=== PATIENT | male | born 1950 | race Caucasian/White ===

== ENCOUNTER 2022-01-17 23:03 | Emergency (ER) | payer MEDICARE, BC, SELFPAY ==
[2022-01-17 23:29] VITALS: BP 188/94; PULSE 88; RESP 17; TEMP 36.9; O2SAT 98; BMI 25.7
--- NOTE | 2022-01-17 23:53 | ED.GENADULT ---
HPI - General Adult General Chief complaint: Abdominal Pain Stated complaint: Acute ABD pain Time Seen by Provider: 01/17/22 23:34 Source: patient Mode of arrival: Ambulatory Limitations: no limitations History of Present Illness HPI narrative: Patient is a 71-year-old male who is here for evaluation of upper abdominal pain. He had symptoms similar to this a couple days ago was seen in outside emergency department. He was told that he had issues with his gallbladder however after receiving treatment at the facility he stated that his symptoms improved and he was discharged home. He also states that he had very similar symptoms several months ago. Was again seen in an outside facility the and he does not remember the exact circumstances as to whether not he received ultrasound or CT scan. Again he was discharged and instructed to follow-up with his primary provider. This evening he started have upper abdominal pain after eating. No vomiting. No urinary symptoms. No prior abdominal surgeries. No change in bowel habits. No skin rashes. No chest pain. No shortness of breath. Related Data Previous Rx's Medication Instructions Recorded albuterol sulfate 90 mcg/actuation 2 puff INH Q4HP PRN #1 inh 06/05/16 aerosol inhaler (Ventolin HFA) mometasone-formoterol HFA 100 1 inh INH BID #1 ea 06/05/16 mcg-5 mcg/actuation aerosol inhaler (Dulera) Spacer: Inhaler Spacer Device ea ##1 09/08/16 levothyroxine 125 mcg tablet 125 mcg PO QDAY #90 tabs 12/25/16 (Synthroid) mupirocin 2 % topical ointment 1 applic topical BID #30 grams 03/17/20 Allergies Allergy/AdvReac Type Severity Reaction Status Date / Time No Known Allergies Allergy Uncoded 11/11/17 12:39 Review of Systems Review of Systems ROS Unobtainable: All systems reviewed & are unremarkable except as noted in HPI and below Patient History Medical History Acquired hypothyroidism (06/24/16) Gastroesophageal reflux disease without esophagitis (06/24/16) Uncomplicated asthma (06/24/16) Social History Smoking Status: Never smoker Smoking Status: Never smoker alcohol intake frequency: 0-2 drinks per day Substance Use Type: does not use Exam Initial Vital Signs Initial Vital Signs: Vital Signs Temperature 98.4 F 01/17/22 23:29 Pulse Rate 88 01/17/22 23:29 Respiratory Rate 17 01/17/22 23:29 Blood Pressure 188/94 H 01/17/22 23:29 Pulse Oximetry 98 01/17/22 23:29 Oxygen Delivery Method 01/17/22 23:29 Const General: cooperative and comfortable HENMT Head: normal to inspection and normocephalic Resp Effort & Inspection: normal respiratory effort Auscultation: clear to auscultation bilaterally Cardio Rate: regular rate Rhythm: regular rhythm GI Inspection: distended Palpation: soft and tender Back/Spine/Pelvis Back: No CVA tenderness Skin General: no rashes or lesions noted Neuro General: patient alert, patient awake, patient oriented x3 and moves all extremities Cognition: normal cognition Speech: speech normal Extrem General: normal to inspection and capillary refill normal Psych Appearance: grossly normal and well kempt Course Orders Ordered: ED Orders 01/17/22 23:54 Complete Blood Count AUTO DIFF Stat Comprehensive Metabolic Panel Stat Lactate (Lactic Acid) Stat Lipase Stat 01/18/22 00:12 CT abdomen pelvis w con Stat 01/18/22 01:22 US abdomen limited Stat 01/18/22 07:05 Consult to General Surgery Stat Discontinued Medications Sodium Chloride (Normal Saline 0.9%) 1,000 mls @ 1,000 mls/hr IV BOLUS ONE Stop: 01/18/22 00:52 Last Infusion: 01/18/22 01:18 Dose: 0 mls/hr Documented By: Admin: 01/18/22 00:10 Dose: 1,000 mls/hr Documented By: SELENA Piperacillin Sod/Tazobactam (Sod 4.5 gm/ Sodium Chloride) 100 mls @ 200 mls/hr IV NOW ONE Stop: 01/18/22 04:02 Last Infusion: 01/18/22 05:02 Dose: 0 mls/hr Documented By: Admin: 01/18/22 04:19 Dose: 200 mls/hr Documented By: SELENA Morphine Sulfate (Morphine 4 Mg/Ml Inj) 4 mg IV NOW ONE Stop: 01/17/22 23:54 Last Admin: 01/18/22 00:10 Dose: 4 mg Documented By: SELENA Vital Signs Vital signs: Vital Signs - 8 hr 01/17/22 23:29 01/18/22 00:12 01/18/22 00:12 Temperature 98.4 F Pulse Rate 88 76 Respiratory Rate 17 Blood Pressure 188/94 H 178/88 H Pulse Oximetry 98 96 Oxygen Delivery Method Room Air 01/18/22 00:30 01/18/22 00:30 01/18/22 01:00 Temperature Pulse Rate 80 Respiratory Rate Blood Pressure 160/76 H 134/64 Pulse Oximetry 94 Oxygen Delivery Method Room Air 01/18/22 01:00 01/18/22 01:37 01/18/22 01:38 Temperature Pulse Rate 80 85 Respiratory Rate Blood Pressure Pulse Oximetry 95 97 98 Oxygen Delivery Method 01/18/22 01:38 01/18/22 02:00 01/18/22 02:00 Temperature Pulse Rate 79 Respiratory Rate Blood Pressure 159/72 H 168/79 H Pulse Oximetry 96 Oxygen Delivery Method 01/18/22 02:30 01/18/22 02:30 01/18/22 03:00 Temperature Pulse Rate 73 Respiratory Rate Blood Pressure 134/72 127/74 Pulse Oximetry 94 Oxygen Delivery Method Room Air 01/18/22 03:00 01/18/22 03:30 01/18/22 03:30 Temperature Pulse Rate 75 76 Respiratory Rate Blood Pressure 130/71 Pulse Oximetry 93 93 Oxygen Delivery Method Room Air 01/18/22 04:00 01/18/22 04:00 01/18/22 04:30 Temperature Pulse Rate 70 74 Respiratory Rate Blood Pressure 130/71 Pulse Oximetry 94 95 Oxygen Delivery Method 01/18/22 05:00 01/18/22 05:30 01/18/22 06:00 Temperature Pulse Rate 69 63 70 Respiratory Rate Blood Pressure Pulse Oximetry 94 93 93 Oxygen Delivery Method 01/18/22 06:30 01/18/22 07:00 Temperature Pulse Rate 72 61 Respiratory Rate Blood Pressure Pulse Oximetry 96 92 Oxygen Delivery Method Medical Decision Making Lab Data Lab results reviewed: Yes I reviewed the patient's lab results. Result diagrams: 01/18/22 00:05 01/18/22 00:05 Labs: Lab Results 01/18/22 01/18/22 01/18/22 Range/Units 00:05 00:05 00:05 WBC 15.1 H (4.5-11.0) X10^3/uL RBC 4.73 (4.5-5.9) X10^6/uL Hgb 14.6 (13.5-17.5) g/dL Hct 43.9 (41-53) % MCV 92.8 (80-100) fL MCH 30.9 (26-34) PG MCHC 33.3 (30-36) % RDW 13.4 (11.6-14.8) % Plt Count 129 L (150-400) X10^3/uL Neut % (Auto) 84.4 H (50-75) % Lymph % (Auto) 8.4 L (25-40) % [place] % (Auto) 5.2 (3-14) % Eos % (Auto) 1.5 L (2-4) % Baso % (Auto) 0.5 (0-2) % Neut # (Auto) 95999 H (5568-3794) /uL Lymph # (Auto) 1300 (2829-3897) /uL [place] # (Auto) 800 (0-900) /uL Eos # (Auto) 200 (0-450) /uL Baso # (Auto) 100 (0-100) /uL Sodium 137 (137-145) mmol/L Potassium 3.9 (3.4-5.1) mmol/L Chloride 105 (98-107) mmol/L Carbon Dioxide 27 (22-32) mmol/L BUN 22 H (9-20) mg/dL Creatinine 0.97 (0.66-1.25) mg/dL Estimated GFR > 60 (>60) mL/min BUN/Creatinine Ratio 22.7 H (6-22) Glucose 107 (80-110) mg/dL Lactate 0.8 (0.7-2.1) mmol/L Calcium 8.3 L (8.4-10.2) mg/dL Total Bilirubin 0.8 (0.2-1.3) mg/dL AST 26 (17-59) IU/L ALT 19 (<50) IU/L Alkaline Phosphatase 74 (38-126) U/L Total Protein 6.5 (6.3-8.2) g/dL Albumin 3.8 (3.5-5.0) g/dL Globulin 2.7 (1.7-4.1) g/dL Albumin/Globulin Ratio 1.4 (1.0-2.8) Lipase 29 (23-300) U/L Urine Dip Bedside Urine Glucose Negative Bedside Urine Bilirubin - Negative Bedside Urine Ketone +/- 5 Urine Specific [place] 1.015 Bedside Urine Occult Blood - Negative Bedside Urine pH 6.0 Bedside Urine Protein - Negative Bedside Urine Urobilinogen - Negative Bedside Urine Nitrite - Negative Bedside Urine Leukocytes - Negative Esterase Point of care testing: Urine Dip Bedside Urine Glucose Negative Bedside Urine Bilirubin - Negative Bedside Urine Ketone +/- 5 Urine Specific [place] 1.015 Bedside Urine Occult Blood - Negative Bedside Urine pH 6.0 Bedside Urine Protein - Negative Bedside Urine Urobilinogen - Negative Bedside Urine Nitrite - Negative Bedside Urine Leukocytes - Negative Esterase Imaging Data CT scan - abdomen/pelvis: Radiologist's Impression: [address] [address] [address] Scan Report Signed Patient: hCuck Sierra MR#: [id number] : 1950 Acct:[id number] Age/Sex: 71 / M Date of Service: 01/18/22 Loc: ED Accession Number: [id number] ?? Procedure: CT abdomen pelvis w con Ordering Provider: Ramy Mercer D.O. PROCEDURE:? CT ABDOMEN PELVIS W CON ? INDICATIONS:? Generalized abdominal pain ? TECHNIQUE:? After the administration of IV contrast, axial sections were acquired from the lung bases to the pubic symphysis.? Coronal and sagittal reformats were performed.? For radiation dose reduction, the following was used:? automated exposure control, adjustment of mA and/or kV according to patient size. ? COMPARISON:? None. ? FINDINGS:? Image quality:? Excellent.? ? Lung bases:? There is mild atelectasis and scarring in the lung bases.? ? Heart:? Heart is normal in size.? There is a large hiatal hernia. ? ? ABDOMEN: Liver:? No mass lesion. Gallbladder:? Multiple calcified gallstones are demonstrated in the gallbladder with wall thickening and pericholecystic fat stranding suggestive of acute cholecystitis.? ? Biliary ducts:? No biliary ductal dilatation.? ? Pancreas:? Unremarkable.? ? Spleen:? Normal in size.? ? Adrenal Glands:? No adrenal nodules.? ? Kidneys and Ureters:? No hydronephrosis.? ? ? Stomach and Bowel:? Stomach and small bowel loops are normal in caliber and wall thickness.? No evidence of appendicitis.? There is mild segmental wall thickening of the colon at the hepatic flexure likely representing reactive changes secondary to adjacent gallbladder inflammation.? Peritoneum:? There is minimal free fluid in the right abdomen which is nonspecific but likely reactive.? No free air.? ? Ventral Wall: ? No hernia.? Abdominal Nodes:? No retroperitoneal or mesenteric adenopathy by size criteria.? Vessels:? Aorta and inferior vena cava are normal in size.? ? PELVIS: Pelvic Organs:? Unremarkable.? ? Bladder:? Unremarkable.? ? Pelvic Nodes: No enlarged lymph nodes.? Miscellaneous:? There is a small fat-containing right inguinal hernia also containing a small amount of free fluid. ? Bones:? Visualized osseous structures demonstrate no suspicious focal lesions. ? IMPRESSION:? ? 1. Cholelithiasis with gallbladder wall thickening and pericholecystic fat stranding likely represents acute cholecystitis.? ? 2. Mild dilatation of the cystic duct without a discrete calcified obstructing stone visualized.? No biliary ductal dilatation or calcified common duct stone. ? Findings discussed with Dr. Mercer on 01/18/2022 at 1:56 p.m.. ? 3. Large hiatal hernia.? ? ? Dictated by: Pablo Frausto M.D. on 01/18/2022 at 1:53 ? ? Approved by: Pablo Frausto M.D. on 01/18/2022 at 2:01? US - abdomen: Radiologist's Impression: Cholelithiasis with pericholecystic fluid and wall thickening, findings suggestive of cholecystitis Wall thickening of 4 mm Multiple stones present within the gallbladder lumen Common bile duct 5 mm Negative sonographic Dill sign Discharge Plan Departure Patient Disposition: Admitted As Inpatient Clinical Impression: Acute cholecystitis
[2022-01-18] VITALS (22 sets, daily range): BP systolic 127–178; BP diastolic 64–88; PULSE 60–85; RESP 16; O2SAT 92–98
[2022-01-18] MEDS: SODIUM CHLORIDE 0.9% 1,000 ML 1000 ML IV (00:10)
[2022-01-18] MEDS: MORPHINE 4 MG/ML INJ IV (00:10)
--- NOTE | 2022-01-18 00:12 | DI.CT.S_ITS ---
PROCEDURE: CT ABDOMEN PELVIS W CON INDICATIONS: Generalized abdominal pain TECHNIQUE: After the administration of IV contrast, axial sections were acquired from the lung bases to the pubic symphysis. Coronal and sagittal reformats were performed. For radiation dose reduction, the following was used: automated exposure control, adjustment of mA and/or kV according to patient size. COMPARISON: None. FINDINGS: Image quality: Excellent. Lung bases: There is mild atelectasis and scarring in the lung bases. Heart: Heart is normal in size. There is a large hiatal hernia. ABDOMEN: Liver: No mass lesion. Gallbladder: Multiple calcified gallstones are demonstrated in the gallbladder with wall thickening and pericholecystic fat stranding suggestive of acute cholecystitis. Biliary ducts: No biliary ductal dilatation. Pancreas: Unremarkable. Spleen: Normal in size. Adrenal Glands: No adrenal nodules. Kidneys and Ureters: No hydronephrosis. Stomach and Bowel: Stomach and small bowel loops are normal in caliber and wall thickness. No evidence of appendicitis. There is mild segmental wall thickening of the colon at the hepatic flexure likely representing reactive changes secondary to adjacent gallbladder inflammation. Peritoneum: There is minimal free fluid in the right abdomen which is nonspecific but likely reactive. No free air. Ventral Wall: No hernia. Abdominal Nodes: No retroperitoneal or mesenteric adenopathy by size criteria. Vessels: Aorta and inferior vena cava are normal in size. PELVIS: Pelvic Organs: Unremarkable. Bladder: Unremarkable. Pelvic Nodes: No enlarged lymph nodes. Miscellaneous: There is a small fat-containing right inguinal hernia also containing a small amount of free fluid. Bones: Visualized osseous structures demonstrate no suspicious focal lesions. IMPRESSION: 1. Cholelithiasis with gallbladder wall thickening and pericholecystic fat stranding likely represents acute cholecystitis. 2. Mild dilatation of the cystic duct without a discrete calcified obstructing stone visualized. No biliary ductal dilatation or calcified common duct stone. Findings discussed with Dr. Mercer on 01/18/2022 at 1:56 p.m.. 3. Large hiatal hernia. Dictated by: Pablo Frausto M.D. on 01/18/2022 at 1:53 Approved by: Pablo Frausto M.D. on 01/18/2022 at 2:01
[2022-01-18 00:18] LABS: Add Manual Diff / Slide Review NO; Basophils Absolute Auto 100 /uL (0-100); Basophils Percent Auto 0.5 % (0-2); Eosinophils Absolute Auto 200 /uL (0-450); Eosinophils Percent Auto 1.5 % (2-4); Hematocrit 43.9 % (41-53); Hemoglobin 14.6 g/dL (13.5-17.5); Lymphocytes Absolute Auto 1300 /uL (1100-4500); Lymphocytes Percent Auto 8.4 % (25-40); Mean Corpuscular HGB Conc 33.3 % (30-36); Mean Corpuscular Hemoglobin 30.9 PG (26-34); Mean Corpuscular Volume 92.8 fL (80-100); Monocytes Absolute Auto 800 /uL (0-900); Monocytes Percent Auto 5.2 % (3-14); Neutrophils Absolute Auto 12700 /uL (1500-7000); Neutrophils Percent Auto 84.4 % (50-75); Platelet Count 129 X10^3/uL (150-400); Red Blood Cell Count 4.73 X10^6/uL (4.5-5.9); Red Cell Distribution Width 13.4 % (11.6-14.8); White Blood Cell Count 15.1 X10^3/uL (4.5-11.0)
[2022-01-18 00:29] LABS: Lactate (Lactic Acid) 0.8 mmol/L (0.7-2.1)
[2022-01-18 00:30] LABS: Alanine Aminotransferase 19 IU/L (<50); Albumin 3.8 g/dL (3.5-5.0); Albumin Globulin Ratio 1.4 (1.0-2.8); Alkaline Phosphatase 74 U/L (38-126); Aspartate Aminotransferase 26 IU/L (17-59); BUN Creatinine Ratio 22.7 (6-22); Bilirubin Total 0.8 mg/dL (0.2-1.3); Blood Urea Nitrogen 22 mg/dL (9-20); Calcium 8.3 mg/dL (8.4-10.2); Carbon Dioxide 27 mmol/L (22-32); Chloride 105 mmol/L (98-107); Estimated Glomerular Filt Rate > 60 mL/min (>60); Globulin 2.7 g/dL (1.7-4.1); Glucose 107 mg/dL (80-110); HEMOLYSIS 31 (0-50); Lipase 29 U/L (23-300); Potassium 3.9 mmol/L (3.4-5.1); Sodium 137 mmol/L (137-145); Total Protein 6.5 g/dL (6.3-8.2)
--- NOTE | 2022-01-18 01:22 | DI.US.S_ITS ---
PROCEDURE: US ABDOMEN LIMITED INDICATIONS: RUQ US eval for GB pathology TECHNIQUE: Real-time scanning was performed of the abdominal and retroperitoneal organs, with image documentation. COMPARISON: None. FINDINGS: Liver: Homogeneous echotexture. No evidence of focal mass lesion. No intra hepatic biliary ductal dilatation Gallbladder: Numerous all shadowing calculi noted gallbladder wall thickening measuring up to 3.9 cm and pericholecystic fluid. Common Bile Duct: 5.0 mm. Pancreas: Unremarkable as visualized IMPRESSION: 1. Acute cholecystitis. Cholelithiasis, gallbladder wall thickening and pericholecystic fluid consistent with acute cholecystitis. Note: Final report is concordant with preliminary interpretation by [employer] Approved by: Kelvin Lizarraga M.D. on 01/18/2022 at 6:36
[2022-01-18] MEDS: PIPERACILLIN/TAZO 4.5 GM in SODIUM CHLORIDE 0.9% 100 ML IV (04:19)
--- NOTE | 2022-01-18 10:52 | PM.CN ---
History of Present Illness Consult details Date Patient Seen: 01/18/22 Time Patient Seen: 09:15 Chief complaint: Acute ABD pain Reason for consult: Acute rashaun Requesting provider: Ramy Mercer Narrative: Patient episode of acute cholecystitis in September that subsided and he has not been in for surgery since. Last week episode occurred again which was seen at [facility] for and released. Today he comes into [facility] with worsening symptoms right upper quadrant pain, sharp, persistent. Workup in the ED confirms acute cholecystitis with mild pericholecystic fluid, 3.9 with wall thickening, LFTs [place] [id number] scan, labs, ultrasound. Patient feels better with IV fluids and pain medication. He has been given a dose of antibiotics as well. His question is whether he could go home and deal with some important issues and delay the surgery until later. Meds Home Medications and Allergies Home Medications Medication Instructions Recorded Confirmed Type albuterol sulfate 90 mcg/actuation 2 puff INH Q4HP PRN #1 inh 06/05/16 03/17/20 Rx aerosol inhaler (Ventolin HFA) mometasone-formoterol HFA 100 1 inh INH BID #1 ea 06/05/16 03/17/20 Rx mcg-5 mcg/actuation aerosol inhaler (Dulera) Spacer: Inhaler Spacer Device ea ##1 09/08/16 03/17/20 Rx levothyroxine 125 mcg tablet 125 mcg PO QDAY #90 tabs 12/25/16 03/17/20 Rx (Synthroid) mupirocin 2 % topical ointment 1 applic topical BID #30 grams 03/17/20 03/17/20 Rx amoxicillin 875 mg-potassium 1 tab PO Q12H #20 tabs 01/18/22 Rx clavulanate 125 mg tablet hydrocodone 5 mg-acetaminophen 325 1 tab PO QID PRN pain #10 tabs 01/18/22 Rx mg tablet Allergies Allergy/AdvReac Type Severity Reaction Status Date / Time No Known Allergies Allergy Uncoded 11/11/17 12:39 Review of Systems Review of Systems ROS: Yes All systems reviewed with the patient and are negative except as otherwise documented Exam Vital Signs (past 8 hours): - 01/18/22 03:00 01/18/22 03:00 01/18/22 03:30 Pulse Rate 75 Respiratory Rate Blood Pressure 127/74 130/71 Pulse Oximetry 93 Oxygen Delivery Method 01/18/22 03:30 01/18/22 04:00 01/18/22 04:00 Pulse Rate 76 70 Respiratory Rate Blood Pressure 130/71 Pulse Oximetry 93 94 Oxygen Delivery Method Room Air 01/18/22 04:30 01/18/22 05:00 01/18/22 05:30 Pulse Rate 74 69 63 Respiratory Rate Blood Pressure Pulse Oximetry 95 94 93 Oxygen Delivery Method 01/18/22 06:00 01/18/22 06:30 01/18/22 07:00 Pulse Rate 70 72 61 Respiratory Rate Blood Pressure Pulse Oximetry 93 96 92 Oxygen Delivery Method 01/18/22 07:30 01/18/22 08:00 01/18/22 08:30 Pulse Rate 60 61 65 Respiratory Rate Blood Pressure Pulse Oximetry 94 95 Oxygen Delivery Method 01/18/22 09:00 01/18/22 09:30 01/18/22 10:16 Pulse Rate 73 82 81 Respiratory Rate 16 Blood Pressure 138/88 Pulse Oximetry 96 96 95 Oxygen Delivery Method Oxygen Delivery Method Room Air Const General: cooperative, healthy appearing and comfortable Nutritional Appearance: average body habitus HENAK Head: normal to inspection and atraumatic Ears: hearing grossly normal bilaterally Face and sinus: normal facial exam Eyes General: appearance normal, both eyes and all related structures Sclera: sclerae normal Neck Neck: trachea midline Chest Chest: normal inspection of the chest Resp Effort & Inspection: normal respiratory effort and able to speak in complete sentences Cardio Rate: tachycardic Rhythm: regular rhythm GI Inspection: normal to inspection Palpation: soft Other: No significant right upper quadrant tenderness to palpation at this time, consistent with resolution of acute cholecystitis Back/Spine/Pelvis Back: normal to inspection Skin General: no rashes or lesions noted and atrophy Neuro General: patient alert, patient awake and patient oriented x3 Cognition: normal cognition Speech: speech normal Extrem General: normal to inspection Psych Appearance: grossly normal Judgment: judgment good Objective Labs Result Diagrams: 01/18/22 00:05 01/18/22 00:05 Labs: Laboratory Results - last 24 hr 01/18/22 01/18/22 01/18/22 00:05 00:05 00:05 WBC 15.1 H RBC 4.73 Hgb 14.6 Hct 43.9 MCV 92.8 MCH 30.9 MCHC 33.3 RDW 13.4 Plt Count 129 L Neut % (Auto) 84.4 H Lymph % (Auto) 8.4 L [place] % (Auto) 5.2 Eos % (Auto) 1.5 L Baso % (Auto) 0.5 Neut # (Auto) 96723 H Lymph # (Auto) 1300 [place] # (Auto) 800 Eos # (Auto) 200 Baso # (Auto) 100 Sodium 137 Potassium 3.9 Chloride 105 Carbon Dioxide 27 BUN 22 H Creatinine 0.97 Estimated GFR > 60 BUN/Creatinine Ratio 22.7 H Glucose 107 Lactate 0.8 Calcium 8.3 L Total Bilirubin 0.8 AST 26 ALT 19 Alkaline Phosphatase 74 Total Protein 6.5 Albumin 3.8 Globulin 2.7 Albumin/Globulin Ratio 1.4 Lipase 29 [facility] Medical History Acquired hypothyroidism (06/24/16) Gastroesophageal reflux disease without esophagitis (06/24/16) Uncomplicated asthma (06/24/16) Tobacco & Substance Use Smoking Status: Never smoker Assessment & Plan Assessment & Plan narrative: Impression recurrent acute cholecystitis. Normal liver function tests. Elevated white count [address]. Plan: Discussed in great detail with the patient his options. He will be going home with Augmentin for a 5 day course. And pain medication for breakthrough pain. If he is on pain medication he should not be driving. If his pain recurs he should return to the hospital for an urgent/emergent lap choly. If the pain resolves and does not return then he can delay his surgery for an elective laparoscopic cholecystectomy at his leisure. COVID-19 COVID-19 status: Negative Time Spent With Patient Time with patient: 30 to 49 minutes with 50% spent counseling/coordinating care Critical Care time: I spent a total of [] minutes of critical care time on this patient's care today; this time is exclusive of procedural time.
== END 2022-01-18 10:25 | disposition home or self-care (01) ==
PROVIDERS: Emergency Medicine; Emergency Provider Emergency Medicine; PCP Family Medicine
DX: K81.0 Acute cholecystitis (principal)
CPT/HCPCS: 36415; 74177; 76705; 80053; 81003; 83605; 83690; 85025; 96361; 96365; 96375; 99283; 99284; J2270; J2543; Q9967

== ENCOUNTER → 2022-11-19 07:20 | Outpatient (CLI) | payer MEDICARE, BC, SELFPAY ==
--- NOTE | 2022-11-21 02:05 | DI.NM.S_ITS ---
DATE OF SERVICE: 11/19/2022 PROCEDURE PERFORMED: Exercise treadmill stress and rest myocardial perfusion imaging with gating to assess ejection fraction and regional wall motion. ORDERING PROVIDER: Valentino Carreon MD. INDICATIONS: The patient is a 72-year-old male with exertional dyspnea and known atherosclerotic carotid disease. EXERCISE TREADMILL TESTING: The patient was able to exercise for 9 minutes on a standard Mark protocol suggesting very good exercise capacity with an RAMONA of - 29%, achieving 10.1 METs. He had a normal heart rate and blood pressure response to exercise, achieving a maximum heart rate of 142 BPM (95% of his predicted maximum). He had no chest discomfort or other anginal symptoms. His resting ECG shows sinus rhythm with normal ST segments. There are no significant ST-segment shifts with exercise. He had rare isolated PVCs, but no complex ectopy. At 8 minutes of exercise at a heart rate of 136 bpm, 26.9 millicuries of technetium-99m Myoview was injected and he was imaged 10 minutes later using a quantitated gated SPECT acquisition protocol. The following day, he was reinjected with an additional 26 millicuries of technetium-99m Myoview, was imaged 20 minutes later, again using a gated SPECT acquisition protocol. FINDINGS: 1. Raw data: There is good myocardial tracer uptake. There is some evidence for probable diaphragmatic attenuation. His lung/heart ratio is normal at 0.23 with a normal TID ratio of 0.96. 2. Quantitated gated SPECT: Post-stress ejection fraction is 71% without any focal wall motion abnormality and specifically, the inferior wall appears to have good contractility. The resting ejection fraction is 66% with a normal resting end-diastolic volume of 95 mL. 3. Myocardial perfusion imaging: Post-stress supine images show a fairly normal myocardial perfusion pattern although with a mild defect in the mid to distal inferior wall in a pattern that would be consistent with diaphragmatic attenuation, supported by its complete resolution on the prone images, revealing a normal, homogeneous perfusion pattern. The resting images show an identical perfusion pattern to that of the post-stress images without any improvement in the inferior defect. IMPRESSION: 1. Normal myocardial perfusion study. 2. Small to moderate fixed inferior wall perfusion defect that resolves on prone imaging, consistent with diaphragmatic attenuation artifact. There is no evidence for previous myocardial infarction or myocardial ischemia. 3. Normal left ventricular systolic function without any focal wall motion abnormality. 4. Very good exercise capacity without angina or ECG evidence of ischemia. Chuck Sierra - SELINA/ankit/can doc#: [id number]/job#: [id number] dd: 11/20/2022 17:00:00 dt: 11/21/2022 01:53:00 DICTATING /COPIES TO: Surendra Manning MD; Valentino Carreon MD COPIES MNE: EVELIO;
== END ==
PROVIDERS: PCP Internal Medicine; Referring Provider Internal Medicine; Visit Provider Internal Medicine
DX: R06.09 Other forms of dyspnea (principal); I73.9 Peripheral vascular disease, unspecified
CPT/HCPCS: 78452; 93017; A9502

== ENCOUNTER → 2024-01-25 15:51 | Outpatient (CLI) | payer MEDICARE, BC, SELFPAY ==
--- NOTE | 2024-01-25 15:52 | DI.US.S_ITS ---
PROCEDURE: US CAROTID DOPPLER BI INDICATIONS: Occlusion and stenosis of right carotid artery TECHNIQUE: Color and pulse Doppler interrogation was performed of both carotid systems, with image documentation and velocity measurements. COMPARISON: None. FINDINGS: Stenosis calculations are based on SRU ([employer] in Ul[employer]) criteria. Right side: Brachial blood pressure: 159/101 mm Hg. Common carotid artery peak systolic velocity: 57 cm/sec. Internal carotid artery peak systolic velocity: 166 cm/sec. Internal carotid artery end diastolic velocity: 62 cm/sec. External carotid artery peak systolic velocity: 118 cm/sec. ICA/CCA peak systolic ratio: 2.9 . Rodrigues scale imaging description: Question possible distal right internal carotid artery occlusion. However, waveform of the proximal and mid internal carotid artery is not supportive, as it has low resistance flow. Percent internal carotid artery stenosis: Peak systolic velocity criteria in the right internal carotid artery suggests a moderate proximal stenosis of between 50-69% . Vertebral artery: Flow direction is antegrade. Left side: Brachial blood pressure: 152/91 mm Hg. Common carotid artery peak systolic velocity: 91 cm/sec. Internal carotid artery peak systolic velocity: 114 cm/sec. Internal carotid artery end diastolic velocity: 48 cm/sec. External carotid artery peak systolic velocity: 102 cm/sec. ICA/CCA peak systolic ratio: 1.3 . Rodrigues scale imaging description: Plaque without significant stenosis. Percent internal carotid artery stenosis: No significant stenosis . Vertebral artery: Flow direction is antegrade. IMPRESSION: 1. Puzzling findings involving the right internal carotid. Proximal internal carotid artery velocity measurement suggests a stenosis of between 50-69%. Distal findings suggest the possibility of an occlusion. Waveforms in the proximal internal carotid artery do not suggest a distal occlusion. 2. No significant left internal carotid artery stenotic disease. Comment: Recommend correlation with CT angiogram of the head and neck Dictated by: Vincent Leon M.D. on 01/25/2024 at 16:48 Approved by: Vincent Leon M.D. on 01/25/2024 at 16:58
== END ==
PROVIDERS: PCP Internal Medicine; Referring Provider Radiology Vascular & Interventional Radiology; Visit Provider Radiology Vascular & Interventional Radiology
DX: I65.21 Occlusion and stenosis of right carotid artery (principal)
CPT/HCPCS: 93880

== ENCOUNTER → 2024-12-06 15:23 | Outpatient (CLI) | payer MEDICARE, BC, SELFPAY ==
[2024-12-06 16:43] LABS: Hematocrit 47.4 % (41-53); Hemoglobin 14.8 g/dL (13.5-17.5); Mean Corpuscular HGB Conc 31.2 % (30-36); Mean Corpuscular Hemoglobin 26.5 PG (26-34); Platelet Count 181 X10^3/uL (150-400); Red Blood Cell Count 5.57 X10^6/uL (4.5-5.9); Red Cell Distribution Width 16.3 % (11.6-14.8)
[2024-12-06 16:57] LABS: Alanine Aminotransferase 26 IU/L (<50); Albumin 4.3 g/dL (3.5-5.0); Albumin Globulin Ratio 1.7 (1.0-2.8); Alkaline Phosphatase 88 U/L (38-126); Aspartate Aminotransferase 35 IU/L (17-59); BUN Creatinine Ratio 25.8 (6-22); Bilirubin Total 0.5 mg/dL (0.2-1.3); Blood Urea Nitrogen 34 mg/dL (9-20); Calcium 9.1 mg/dL (8.4-10.2); Carbon Dioxide 24 mmol/L (22-32); Chloride 105 mmol/L (98-107); Estimated Glomerular Filt Rate 57 mL/min (>60); Globulin 2.5 g/dL (1.7-4.1); Glucose 82 mg/dL (70-99); HEMOLYSIS < 15 (0-50); Potassium 4.8 mmol/L (3.4-5.1); Sodium 137 mmol/L (137-145); Total Protein 6.8 g/dL (6.3-8.2)
== END ==
PROVIDERS: Chiropractor; Referring Provider Physician Assistant; Visit Provider Physician Assistant
DX: R19.7 Diarrhea, unspecified (principal)
CPT/HCPCS: 36415; 80053; 85027